=== PATIENT | male | born 1980 | race Caucasian/White ===

== ENCOUNTER 2020-09-12 08:59 | Emergency (ER) | payer SELFPAY ==
[2020-09-12 09:05] VITALS: BP 143/89; PULSE 88; RESP 19; TEMP 37; O2SAT 98; BMI 39.8
--- NOTE | 2020-09-12 09:23 | HMH.EDUTC ---
[facility] [place] Impression: Sinusitis Disposition: Home, Self-Care Condition on Discharge: Good Instructions: DI for Sinusitis Additional Instructions: You have been tested for COVID19. Please isolate yourself as if you are positive until your test results received. Prescriptions: Amoxicillin/Potassium Clav [Augmentin 875-125 Tablet] 1 tab PO Q12H 10 Days #20 tab Transmission Status: Pending to [facility] predniSONE [Prednisone 20mg Tab] 20 mg PO BID 5 Days #10 tab Transmission Status: Pending to [facility] Referrals: PCP,No [Primary Care Provider] - Time of Disposition: 09:28 Medical Decision Making - Louis Inquiry Pt receiving controlled substance: No Orders (Tests/Meds): ORDERS Category Date Time Status Covid-19 Nasal PCR ([facility]) Routine Lab 09/12/20 09:[address] [facility] [place] - General Stated complaint: headache,sinus,loss of smell Time Seen by Provider: 09/12/20 09:23 - History of Present Illness Provider Complaint: Headache, congestion, loss of smell since yesterday. No fever. Denies headache or sore throat. Denies N/V/D. Onset (ago): day(s) Location: head Relieving factors: none Exacerbating factors: none Associated symptoms: headaches Treatments prior to arrival: NSAID - Related Data Previous Rx's Medication Instructions Recorded phentermine 37.5 mg tablet 37.5 mg PO DAILY #30 tab 05/28/20 Amoxicillin/Potassium Clav 1 tab PO Q12H 10 Days #20 tab 09/12/20 [Augmentin 875-125 Tablet] predniSONE [Prednisone 20mg 20 mg PO BID 5 Days #10 tab 09/12/20 Tab] Allergies Allergy/AdvReac Type Severity Reaction Status Date / Time SULFA (SULFONAMIDE) Allergy Mild I-ITCHING Uncoded 05/28/20 09:20 ERYTHROMYCIN Allergy Unknown Uncoded 05/28/20 09:20 [facility] History - Hepatitis A Screen Attestation statement:: This patient has been screened for Hepatitis A risk factors. I have reviewed the patient's past medical history: Yes Other Surgeries: Yes: Hernia Repair Amputation: No Fractures: No Comment: L ACL rx - Social History Smoking Status: Never smoker Alcohol Intake: never Substance Use Type: denies use Occupational Status: employed Family Hx:: Diabetes, Thyroid Disorder ROS Obtained: Yes All systems reviewed & no additional complaints - Constitutional Constitutional: Reports headache(s), Reports malaise - ENT Ears, Nose, Mouth, and Throat: Reports nasal congestion, Reports other (loss of smell) Physical Exam - General General appearance: alert, in no apparent distress - Head Head exam: atraumatic, normocephalic, normal inspection - Eye Eye exam: Present: normal appearance, PERRL, EOMI - ENT ENT exam: Present: normal exam, normal oropharynx, mucous membranes moist, TM's normal bilaterally, normal external ear exam - Neck Neck exam: Present: normal inspection, full ROM, trachea midline. Absent: meningismus, lymphadenopathy - Chest Chest inspection: Present: normal inspection, symmetric chest wall rise. Absent: tenderness - Respiratory Respiratory exam: Present: normal lung sounds bilaterally. Absent: respiratory distress - Cardiovascular Cardiovascular exam: Present: regular rate, normal rhythm. Absent: JVD - Abdominal Exam Abdominal exam: Present: soft, normal bowel sounds. Absent: distention, tenderness, guarding - Extremities Exam Extremities exam: Present: normal inspection, full ROM, normal capillary refill. Absent: calf tenderness - Back Exam Back exam: Present: normal inspection. Absent: tenderness - Neurological Exam Neurological exam: Present: alert, oriented X3 - Psychiatric Psychiatric exam: Present: normal affect, normal mood - Skin Skin exam: Present: warm, dry, intact, normal color - Lymphatic Lymphatic Findings: no adenopathy
[2020-09-12 09:28] VITALS: BP 143/89; PULSE 88; RESP 19; TEMP 37; O2SAT 98
== END 2020-09-12 09:30 | disposition home or self-care (01) ==
PROVIDERS: Emergency Provider Physician Assistant
DX: Z20.822 Contact with and (suspected) exposure to COVID-19 (principal); J01.90 Acute sinusitis, unspecified; Z88.2 Allergy status to sulfonamides; Z88.1 Allergy status to other antibiotic agents
CPT/HCPCS: 99202; G0463; U0003

== ENCOUNTER 2023-08-17 11:57 | Outpatient (CLI) | payer OTHER, SELFPAY ==
[2023-08-17 12:34] LABS: Chloride 102 mmol/L (98-107); Potassium 4.3 mmoL/L (3.5-5.1); Sodium 136 mmol/L (136-145)
[2023-08-17 12:36] LABS: Blood Urea Nitrogen 13 mg/dl (9-20); Estimated Glomerular Filt Rate 106 ml/min (>60); GFR (African American) 128 ML/MIN (>60)
[2023-08-17 12:37] LABS: Alanine Aminotransferase 52 U/L (12-78); Albumin/Globulin Ratio 1.2 (1.1-1.8); Alkaline Phosphatase 84 U/L (38-126); Anion Gap 12.3 mEq/L (5-15); Aspartate Amino Transferase 39 U/L (17-59); Bilirubin,Total 0.7 mg/dl (0.2-1.3); Calcium 9.3 mg/dl (8.4-10.2); Carbon Dioxide 26 mmol/L (22.0-30.0); Chol/HDL Ratio 5.7 (1-3.5); Cholesterol 226 mg/dl (140-200); Globulin 3.4 g/dL (1.3-3.2); Glucose 177 mg/dl (74-100); HDL Cholesterol 40 mg/dl (40-60); Total Protein,Serum 7.4 g/dl (6.3-8.2); Triglycerides 104 mg/dl (30-150); VLDL Cholesterol 21 mg/dL (0-40)
[2023-08-17 12:48] LABS: Direct LDL Cholesterol 151.07 mg/dL (100-129)
[2023-08-17 12:54] LABS: 25-OH Vitamin D, Total 30.7 ng/mL (30-100)
[2023-08-17 13:07] LABS: Thyroid Stimulating Hormone 3.05 uIU/mL (0.465-4.68)
[2023-08-17 13:51] LABS: Prostate Specific Ag Screen 0.2 ng/ml (0.0-4.0)
[2023-08-22 08:43] LABS: Basophils % 0.4 % (0.1-2.0); Eosinophils # 0.2 K/mm3 (0.0-0.4); Eosinophils % 2.9 % (0.1-12.0); Hematocrit 45.8 % (42.0-52.0); Hemoglobin 14.9 g/dL (14.1-18.0); Lymphocytes # 2.6 K/mm3 (0.7-4.5); Lymphocytes % 34.1 % (10-50); Mean Corpuscular HGB Conc 32.6 g/dL (31.8-35.4); Mean Corpuscular Hemoglobin 28.2 pg (27.0-31.2); Mean Corpuscular Volume 86.5 fl (80-94); Mean Platelet Volume 7.2 fl (7.4-10.4); Monocytes # 0.5 K/mm3 (0.1-1.0); Monocytes % 7.1 % (1.7-9.3); Neutrophils # 4.2 K/mm3 (1.8-7.8); Neutrophils % 55.4 % (37.0-80.0); Platelet Count 230 K/mm3 (142-424); Red Cell Distribution Width 13.1 % (11.5-17.5); White Blood Count 7.6 K/mm3 (4.8-10.8)
[2023-08-22 14:23] LABS: Hemoglobin A1C 7.1 % (4.0-6.0)
== END 2023-08-17 23:59 ==
LOC: LAB.DROPOF 11:57
PROVIDERS: PCP Physician Assistant; Visit Provider Physician Assistant
DX: E66.01 Morbid (severe) obesity due to excess calories (principal); Z68.41 Body mass index [BMI] 40.0-44.9, adult; R73.09 Other abnormal glucose; Z79.899 Other long term (current) drug therapy; Z12.5 Encounter for screening for malignant neoplasm of prostate
CPT/HCPCS: 36415; 80053; 80061; 82306; 83036; 84443; 85025; G0103

== ENCOUNTER 2023-08-22 08:19 | Outpatient (CLI) | payer OTHER, SELFPAY | END 2023-08-22 23:59 | LOC: LAB 08:19 | PROVIDERS: PCP Physician Assistant; Visit Provider Physician Assistant | DX: E66.9 Obesity, unspecified (principal); Z68.41 Body mass index [BMI] 40.0-44.9, adult ==

== ENCOUNTER 2024-02-18 10:07 | Emergency (ER) | payer OTHER, SELFPAY ==
[2024-02-18 10:18] VITALS: BP 149/105; PULSE 78; RESP 18; TEMP 37.3; O2SAT 100; BMI 42.0
--- NOTE | 2024-02-18 10:22 | EXP.UTC ---
Discharge Plan Disposition Patient Disposition: Home, Self-Care Condition: Good Prescriptions Prescriptions: New amoxicillin 875 mg tablet 875 mg PO Q12H Qty: 20 0RF ciprofloxacin-dexamethasone 0.3-0.1 % Drops,Suspension 2 drp Ear-Right BID 7 Days Qty: 1 0RF ibuprofen [IBU] 800 mg tablet 800 mg PO Q8HP PRN (Reason: Moderate Pain) Qty: 30 0RF No Action Ozempic 0.25 mg or 0.5 mg (2 mg/3 mL) pen injector 0.25 mg SQ WEEKLY Qty: 3 2RF Rx Instructions: for 4 weeks, then increase to 0.5 mg weekly HgA1c 7.1 losartan 25 mg tablet 25 mg PO DAILY atorvastatin [Lipitor] 10 mg tablet 10 mg PO HS Qty: 30 2RF metformin 500 mg tablet extended release 24 hr See Rx Instructions .ROUTE .COMPLEX Qty: 30 2RF Dose Instruction: TAKE ONE TABLET BY MOUTH EVERY DAY --TAKE WITH FOOD-- Rx Instructions: TAKE ONE TABLET BY MOUTH EVERY DAY --TAKE WITH FOOD-- Ozempic 1 mg/dose (4 mg/3 mL) pen injector 1 mg SQ WEEKLY Qty: 3 2RF Referrals Follow up/Referrals: Mary Whitaker PA [Primary Care Provider] - See instructions Activity Restrictions/Add. Instructions Additional Instructions/Restrictions: Drink plenty of fluids. Take tylenol or ibuprofen for pain or fever. Take the medications as directed. Instill the ear drops as directed. Follow up with your regular doctor. GO TO THE ER FOR ANY WORSENING SYMPTOMS Clinical Impressions Clinical Impression: External otitis of right ear Instructions Patient Instructions: DI for Otitis Externa, How to Instill Ear Drops Discharge ED Provider: Elder Combs [facility] General Stated complaint: pain in R ear Mode of Arrival: Ambulatory Source of Information: Patient Limitations: No Limitations Time Seen by Provider: 02/18/24 10:21 Description of Symptoms (Recalled from Triage Doc. by RN): Pt c/o R ear pain x3 days. Pt reports also pain on R side of face. Pt reports feels like swimmers ear . Pt has recently been swimming. HEENT Symptoms (Recalled from RN notes): Yes (c/o pain R ear and R side of face.) Resp Symptoms (Recalled from RN notes): No Skin Symptoms (Recalled from RN notes): No MS Symptoms (Recalled from RN notes): No Functional Status (Recalled from RN notes): n/a History of Present Illness Provider Complaint: He states that for the past 3 days he has had right ear pain with tannish discharge from that ear canal. He states that he is hearing normally out of the ear. [place] been to the ocean and was swimming frequently before his symptoms started. Related Data Home Medications Medication Instructions Recorded Confirmed losartan 25 mg tablet 25 mg PO DAILY 11/15/22 02/18/24 Previous Rx's Medication Instructions Recorded atorvastatin 10 mg tablet (Lipitor) 10 mg PO HS #30 tabs 08/24/23 semaglutide 0.25 mg or 0.5 mg (2 0.25 mg (0.368 mL) SQ WEEKLY #3 mL 11/07/23 mg/3 mL) subcutaneous pen injector (Ozempic) metformin 500 mg tablet,extended See Rx Instructions .Route 12/01/23 release 24 hr .COMPLEX #30 tabs semaglutide 1 mg/dose (4 mg/3 mL) 1 mg (0.75 mL) SQ WEEKLY #3 mL 01/22/24 subcutaneous pen injector (Ozempic) amoxicillin 875 mg tablet 875 mg PO Q12H #20 tabs 02/18/24 ciprofloxacin 0.3 %-dexamethasone 2 drp Ear-Right BID 7 days #1 ea 02/18/24 0.1 % ear drops,suspension ibuprofen 800 mg tablet (IBU) 800 mg PO Q8HP PRN Moderate Pain 02/18/24 #30 tabs Allergies Allergy/AdvReac Type Severity Reaction Status Date / Time lisinopril Allergy Severe Cough Verified 11/07/23 08:31 erythromycin base Allergy Verified 11/07/23 08:31 Sulfa (Sulfonamide Allergy Verified 11/07/23 08:31 Antibiotics) Worker's Comp Is this a Worker's Comp case?: No [facility] Disclaimer: The information contained in this section may have been updated after the patient was seen, as this information can be updated by other users. Medical History (Updated 02/18/24 @ 10:33 by Elder Combs APRN) Type 2 diabetes mellitus Hypertension BMI 40.0-44.9, adult Obesity Social History Smoking Status: Never smoker alcohol intake: never substance use type: denies use current occupational status: other Travel in the last 8 weeks: None ROS Obtained: Yes All systems reviewed & no additional complaints except as documented Constitutional Constitutional: Denies chills and Denies fever(s) Eyes Eyes: Denies eye discharge ENT Ears, Nose, Mouth, and Throat: Reports as per HPI, Denies dizziness, Reports ear discharge, Reports otalgia and Denies sore throat Cardiovascular Cardiovascular: Denies chest pain Respiratory Respiratory: Denies shortness of breath, Denies chest congestion, Denies cough, Denies stridor and Denies wheezing Gastrointestinal Gastrointestingal: Denies nausea or vomiting Musculoskeletal Musculoskeletal: Reports system reviewed and no additional complaints, except as documented and Denies arthralgias Integumentary/Breasts Skin/Breast: Denies rash Neurologic Neurologic: Denies dizziness and Denies paresthesias Allergic/Immunologic Allergic/Immunologic: Denies wheezing Physical Exam General General appearance: alert and in no apparent distress Head Head exam: atraumatic, normocephalic and normal inspection Eye Eye exam: Present normal appearance, PERRL and EOMI ENT ENT exam: Present normal oropharynx, mucous membranes moist and normal external ear exam Expanded ENT Exam TM/Canal exam: Right TM: erythema, canal discharge and canal tenderness Neck Neck exam: Present normal inspection, full ROM and trachea midline; Absent meningismus or lymphadenopathy Chest Chest inspection: Present normal inspection and symmetric chest wall rise; Absent tenderness Respiratory Respiratory exam: Present normal lung sounds bilaterally; Absent respiratory distress Cardiovascular Cardiovascular exam: Present regular rate and normal rhythm; Absent JVD Abdominal Exam Abdominal exam: Present soft and normal bowel sounds; Absent distention, tenderness or guarding Extremities Exam Extremities exam: Present normal inspection, full ROM and normal capillary refill; Absent calf tenderness Back Exam Back exam: Present normal inspection; Absent tenderness Neurological Exam Neurological exam: Present alert and oriented X3 Psychiatric Psychiatric exam: Present normal affect and normal mood Skin Skin exam: Present warm, dry, intact and normal color Lymphatic Lymphatic Findings: no adenopathy Medical Decision Making Medical Records Medical records reviewed: No I reviewed the patient's medical records. Louis Inquiry Pt receiving controlled substance: No Vital Signs: 02/18/24 10:18 Temperature 99.1 F Temperature Source Oral Pulse Rate [Right Radial] 78 Respiratory Rate 18 Blood Pressure [Right Arm] 149/105 H Blood Pressure Mean [Right Arm] 119 Blood Pressure Source [Right Arm] Automatic Cuff Blood Pressure Position [Right Arm] Sitting 02 Sat by Pulse Oximetry 100 Oxygen Delivery Method Room Air
[2024-02-18 10:38] VITALS: BP 152/111; PULSE 82; RESP 18; TEMP 37.3; O2SAT 99
== END 2024-02-18 10:39 | disposition home or self-care (01) ==
PROVIDERS: Emergency Provider Nurse Practitioner Family; PCP Physician Assistant
DX: H60.91 Unspecified otitis externa, right ear (principal); H92.01 Otalgia, right ear
CPT/HCPCS: 99204; 99212; G0463

== ENCOUNTER 2024-03-22 09:04 | Outpatient (CLI) | payer OTHER, SELFPAY ==
--- NOTE | 2024-03-22 09:08 | XR_ITS ---
FINAL REPORT CLINICAL HISTORY: knee pain FINDINGS: Left knee Three views were obtained. There is no acute fracture or dislocation. There are postoperative changes from ACL repair. There are mild to moderate degenerative changes. IMPRESSION: Degenerative and postoperative changes. Reviewed, Interpreted and Dictated by Darrick Parikh III, MD Transcribed by Virgen Trotter Authenticated and [facility]
== END 2024-03-22 23:59 | disposition home or self-care (01) ==
LOC: RAD 09:06
PROVIDERS: PCP Physician Assistant; Visit Provider Physician Assistant
DX: M25.562 Pain in left knee (principal)
CPT/HCPCS: 73562

== ENCOUNTER 2024-07-11 13:30 | Outpatient (CLI) | payer OTHER, SELFPAY ==
[2024-07-11 17:44] LABS: Microalbumin/Creatinine Ratio 4.7
[2024-07-11 17:55] LABS: Creatinine,Urine Random 278 mg/dL (Not Estab.)
== END 2024-07-11 23:59 | disposition home or self-care (01) ==
LOC: LAB.DROPOF 07-12 08:21
PROVIDERS: PCP Internal Medicine; Visit Provider Internal Medicine
DX: E11.9 Type 2 diabetes mellitus without complications (principal)
CPT/HCPCS: 82043; 82570

== ENCOUNTER 2025-03-11 08:43 | Outpatient (CLI) | payer OTHER, SELFPAY ==
--- OUTSIDE RECORDS SUMMARY | 2025-03-11 08:06 | XMS_ITS | Continuity of Care Document ---
Author Name [facility] Organization [facility] Care Team Providers Care Home Care Aide Name Role Phone [facility] Unavailable Unavailable Problems Combined list of problems from Department of Defense and Veterans Affairs facilities. It does not include entries that were removed or entered in error. Problem Status Onset Date Problem Type Date of Resolution Comments Source visit for: services physical demobilization Active Condition [facility] ankle joint pain Inactive Condition [facility] UPPER RESPIRATORY INFECTION Active Condition [facility] GASTROENTERITIS Inactive Condition [facility] Other Physical Therapy Active Condition [facility] ANKLE SPRAIN Inactive Condition [facility] visit for: examination Inactive Condition [facility] CONCUSSION WITH LOC 30 MINUTES OR LESS Inactive Condition [facility] eye pain Inactive Condition [facility] CONJUNCTIVITIS ACUTE RIGHT EYE Inactive Condition [facility] DISORDERS OF MUSCLE, LIGAMENT, AND FASCIA Active Condition [facility] ANKLE SPRAIN LEFT Inactive Condition [facility] WELDERS' KERATITIS Active Condition r esolved. 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 Active Condition [facility] Ankle Injury Active Condition Sep 08, 2009 Entered By: MARINA RICHMOND Comment: Recurrent Right Ankle SprainsOct 02, 2009 Entered By: MARINA RICHMOND Comment: Pain in both ankles [facility] Anxiety Active Condition [facility] Anxiety Disorder Active Condition Apr 22, 2010 Entered By: MARINA RICHMOND Comment: Citalopram resulted in palpitations [facility] Bladder Neck Obstruction Active Condition December 11, 2012 Entered By: MARINA RICHMOND Comment: Post Void residual 150 ml December 2012; Flomax prescribed [facility] Bunion Active Condition [facility] Condyloma latum (SNOMED [place] 87722001) Active Condition [facility] Depressive Disorder NOS * (ICD-9-CM 311.) Active Condition [facility] Exposure to potentially hazardous substance Active Condition [facility] Family History Active Condition Sep 082009 Entered By: MARINA RICHMOND Comment: Diabetes - paternal grandmotherFeb 2009 Entered By: MARINA RICHMOND Comment: Breast Cancer - maternal aunt [facility] Health Maintenance Active Condition S ep 2009 Entered By: MARINA RICHMOND Comment: TSH 3.69 December 2012Sep 2009 Entered By: MARINA RICHMOND Comment: Hep C neg 2011 Entered By: MARINA RICHMOND Comment: HIV neg 03/18May 2012 Entered By: MARINA RICHMOND Comment: A1c 5.4% December 2012 [facility] Hearing loss Active Condition [facility] History of male erectile disorder (SNOMED CT 861225595) Active Condition Oct 08, 2009 Entered By: MARINA RICHMOND Comment: Total and free Testosterone normal 10/14 [facility] HTN - Hypertension (SNOMED CT 32656229) Active Condition [facility] Hyperlipidemia (SNOMED CT 28692080) Active Condition Apr 28, 2010 Entered By: MARINA RICHMOND Comment: Chol 228/ Trig 316/ HDL 43/ LDL 122 mg/dl 04/16 [facility] Injury of shoulder region Active Condition [facility] Irritable Bowel Syndrome Active Condition December 13, 2012 Entered By: MARINA RICHMOND Comment: Celiac serology negative; stool studies benign December Entered By: MARINA RICHMOND Comment: Colonosocpy Mar 2013 - erosion sigmoid and rectum.Mar 26, 2013 Entered By: MARINA RICHMOND Comment: Colon biopsies benign Mar 2013 [facility] Knee Injury Active Condition Oct 02, 2009 Entered By: MARINA RICHMOND Comment: Lateral Left Knee PainOct 19, 2011 Entered By: MARINA RICHMOND Comment: MRI 10/16 -Tear post horn medial meniscus? tear lat meniscus;Oct 19, 2011 Entered By: MARINA RICHMOND Comment: absent anterior cruciate ligament consistent w/ chronic tearS2011 Entered By: MARINA RICHMOND Comment: Left ACL recontruction Mar 2012Se2012 Entered By: MARINA RICHMOND Comment: L Knee MRI Apr 2013 - significant pathologyMay 2013 Entered By: MARINA RICHMOND Comment: L Knee MRI December 2013 - ACL graft rupture [facility] Pain in left foot [facility] Pain in left knee Active [facility] Pain of left ankle joint Active Condition [facility] Personal History of return from Deployment Active Condition Mar 03, 2009 Entered By: MARINA RICHMOND Comment: Purple Heart Recepient (IED; concussion)Oct 02, 2009 Entered By: MARINA RICHMOND Comment: [employer], remains in [employer] Entered By: MARINA RICHMOND Comment: [place] 09/14 to 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; 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 Entered By: MARINA RICHMOND Comment: 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; 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 [facility] Posttraumatic stress disorder Active Condition [facility] Shoulder joint pain Active Condition [facility] Simple obesity Active Condition [place] [facility] Social History Active Condition Sep 082009 Entered By: MARINA RICHMOND Comment: Single, no childrenFe2009 Entered By: MARINA RICHMOND Comment: Tobacco Use deniedOct 02, 2009 Entered By: MARINA RICHMOND Comment: Alcohol - 4-5 drinks on week per averageFe2009 Entered By: MARINA RICHMOND Comment: Some collegeFe2009 Entered By: MARINA RICHMOND Comment: Unemployed [facility] Sprain of anterior cruciate ligament of knee Active Condition [facility] Surgical History Active Condition Oct 02, 2009 Entered By: MARINA RICHMOND Comment: Left Inguinal Hernia procedureS2011 Entered By: MARINA RICHMOND Comment: L ACL recontruction Mar 2012 [facility] Type 2 diabetes mellitus without complication Active Condition [facility] Diagnosis: ICD-10-CM I10 Essential (primary) hypertension Active Diagnosis [facility] Medications Combined list of outpatient medications from Department of Defense and Veterans Affairs facilities.Medications provided include 1) outpatient medications from the last 15 months, and 2) patient-reported medications. Medication Details Route Status Patient Instructions Prescription Expires Prescription Number Last Dispense Date Ordering Provider Order Date Order Qty Source ATORVASTATI N [place] 20MG TAB TAKE ONE-HALF TABLET BY MOUTH DAILY FOR CHOLESTE ROL -DO NOT DRINK GRAPEFRU IT JUICE WHILE ON THIS DRUG ORAL ACTIVE 04/19/2025 [id number] AUGIE TIPTON UKKaren S 2023 45 [place] [facility] LOS[place]AN 50MG TAB TAKE ONE TABLET BY MOUTH DAILY FOR BLOOD PRESSURE ORAL ACTIVE 04/19/2025 [id number] 4 AUGIE TIPTON S 2023 90 [place] [facility] LOS[place]AN 50MG TAB TAKE ONE TABLET BY MOUTH DAILY FOR BLOOD PRESSURE ORAL DISCONT INUED 05/05/2024 [id number] 4 AUGIE TIPTON S 2023 90 [place] [facility] MELOXICAM 7.5MG TAB TAKE ONE TABLET BY MOUTH DAILY NEEDED FOR PAIN OR INFLAMMA TION - TAKE WITH FOOD OR MILK ORAL ACTIVE 04/19/2025 [id number] 4 AUGIE TIPTON S 2023 90 [place] [facility] METFORMIN HCL 500MG 24HR TAB,SA TAKE ONE TABLET BY MOUTH DAILY ORAL ACTIVE AUGIE TIPTON S 2023 [place] [facility] PEG-3350/EL ECTROLYTES PWDR TAKE CONTENTS OF BOTTLE BY MOUTH DIRECTED FOR BOWEL PREP -FILL JUG TO LINE WITH WATER. DRINK HALF AT 6PM THE NIGHT BEFORE PROCEDUR E. DRINK LAST HALF 4-6 HOURS PRIOR TO PROCEDUR E. NOTHING BY MOUTH AFTER PREP IS COMPLETE D. CALL PREP HOTLINE AT WITH QUESTION S. -FILL JUG TO LINE WITH WATER. DRINK HALF AT 6PM THE NIGHT BEFORE PROCEDUR E. DRINK LAST HALF 4-6 HOURS PRIOR TO PROCEDUR E. NOTHING BY MOUTH AFTER PREP IS COMPLETE D. CALL PREP HOTLINE AT WITH QUESTION S. ORAL 10/22/2024 [id number] 5 DORETHA,AND LESTER M 2024 1 [place] SILDENAFIL CITRATE 100MG TAB TAKE ONE TABLET BY MOUTH DIRECTED -DO NOT TAKE WITH ANY MEDICATI ON CONTAINI NG NITRATES (LIMIT: 6 DOSES/30 DAYS OR 18 DOSES/90 DAYS, NON-REPL ACEABLE MEDICATI ON) ORAL ACTIVE 04/19/2025 [id number] 5 AUGIE TIPTON S 2023 18 [place] [facility] SILDENAFIL CITRATE 100MG TAB TAKE ONE TABLET BY MOUTH DIRECTED -DO NOT TAKE WITH ANY MEDICATI ON CONTAINI NG NITRATES (LIMIT: 6 DOSES/30 DAYS OR 18 DOSES/90 DAYS, NON-REPL ACEABLE MEDICATI ON) ORAL DISCONT INUED 02/26/2024 [id number] 4 AUGIE TIPTON S 2023 18 [place] Allergies, Adverse Reactions, Alerts Combined list of allergies from Department of Defense and Veterans Affairs facilities. It does not include entries that were removed or entered in error. Substance Category Reaction Severity Reaction type Status Date Reported Comments Source CELEXA Propensity to adverse reactions to drug (finding) Palpitation s MODERATE active 3 [place] [facility] Propensity to adverse reactions to drug (finding) Nausea and vomiting MILD active 3 [place] [facility] ERYTHROMYCIN Propensity to adverse reactions to drug (finding) active 0 [place] [facility] ER[facility]ROM[facility] (ERYTHROMYCI N BASE) Drug allergy (disorder) Unknown active 6 [employer] [place] LISINOPRIL Propensity to adverse reactions to drug (finding) active 3 [place] [facility] SULFA DRUGS Propensity to adverse reactions to drug (finding) active 0 [place] [facility] SULFA-DRUGS Drug allergy (disorder) Unknown active 6 [employer] [place] [place] TRAZODONE Propensity to adverse reactions to drug (finding) Nausea and vomiting MODERATE active 2 [place] [facility] Immunizations Combined list of available immunizations from the Department of Defense and Veterans Affairs facilities. Immunization Series Date Given Administered By Site Reaction Lot Number CVX Code Drug Professor Of Rhetoric Status Comments Source INFLUENZA, SEASONAL, INJECTABLE 2018 141 complet ed [place] [facility] INFLUENZA A & B (HISTORICAL) 2015 88 complet ed [place] [facility] DTP 2013 01 complet ed [place] [facility] TDAP (HISTORICAL) 2013 115 complet ed [place] [facility] INFLUENZA A & B (HISTORICAL) 2013 88 complet ed [place] [facility] INFLUENZA A & B (HISTORICAL) 2012 88 complet ed [place] [facility] INFLUENZA A & B (HISTORICAL) 2011 88 complet ed [facility] INFLUENZA A & B (HISTORICAL) 2010 88 complet ed [place] [facility] influenza virus vaccine, live, attenuated, for intranasal use 1 2010 [id number] 111 Unknown (UNK) comple t ed influenza virus vaccine, live, attenuate d, for intranasa l use DoD influenza virus vaccine, unspecified formulation 1 2009 UNK 88 Unknown (UNK) comple t ed influenza virus vaccine, unspecifi ed formulati on DoD Novel influenza-H1N 1-09, all formulations 1 2009 [id number] 1 128 Unknown (UNK) complet ed Novel influenza -[id number], all formulati ons DoD NOVEL INFLUENZA-H1N 1-09, ALL FORMULATIONS 2009 128 complet ed [employer] [place] [facility] INFLUENZA A & B (HISTORICAL) 2008 88 complet ed [facility] influenza virus vaccine, live, attenuated, for intranasal use 1 2008 [id number] 111 Unknown (UNK) comple t ed influenza virus vaccine, live, attenuate d, for intranasa l use DoD influenza virus vaccine, split virus (incl. purified surface antigen)-reti red CODE 0 2007 15 Unknown (UNK) comple t ed influenza virus vaccine, split virus (incl. purified surface antigen)- retired CODE DoD anthrax vaccine 4 2007 UNK 24 Miles (MIL) complet ed anthrax vaccine DoD influenza virus vaccine, split virus (incl. purified surface antigen)-reti red CODE 1 2007 UNK 15 Unknown (UNK) comple t ed influenza virus vaccine, split virus (incl. purified surface antigen)- retired CODE DoD anthrax vaccine 3 2007 UNK 24 Miles (MIL) complet ed anthrax vaccine DoD anthrax vaccine 2 2007 UNK 24 [facility] ([facility]) complet ed anthrax vaccine DoD anthrax vaccine 1 2007 UNK 24 [employer] (MIP) complet ed anthrax vaccine DoD vaccinia (smallpox) vaccine 1 2007 UNK 75 Dominick (WAL) complet ed vaccinia (smallpox ) vaccine DoD typhoid Vi capsular polysaccharid e vaccine 1 2007 [id number] [employer] (AVB) complet ed typhoid Vi capsular polysacch aride vaccine DoD TD(ADULT) UNSPECIFIED FORMULATION 2007 139 complet ed [place] [facility] influenza virus vaccine, split virus (incl. purified surface antigen)-reti red CODE 1 2006 UNK 15 Unknown (UNK) comple t ed influenza virus vaccine, split virus (incl. purified surface antigen)- retired CODE DoD influenza virus vaccine, split virus (incl. purified surface antigen)-reti red CODE 1 2006 UNK 15 Unknown (UNK) comple t ed influenza virus vaccine, split virus (incl. purified surface antigen)- retired CODE DoD hepatitis B vaccine, adult dosage 3 2005 UNK 43 Unknown (UNK) comple t ed hepatitis B vaccine, adult dosage DoD hepatitis B vaccine, adult dosage 2 2004 UNK 43 Unknown (UNK) comple t ed hepatitis B vaccine, adult dosage DoD typhoid vaccine, parenteral, other than acetone-kille d, dried 1 2003 UNK 41 Unknown (UNK) comple t ed typhoid vaccine, parentera l, other than acetone-k illed, dried DoD hepatitis B vaccine, adult dosage 1 2003 UNK 43 Unknown (UNK) comple t ed hepatitis B vaccine, adult dosage DoD hepatitis A vaccine, adult dosage 1 2003 UNK 52 Unknown (UNK) comple t ed hepatitis A vaccine, adult dosage DoD influenza virus vaccine, split virus (incl. purified surface antigen)-reti red CODE 1 2002 UNK 15 Unknown (UNK) comple t ed influenza virus vaccine, split virus (incl. purified surface antigen)- retired CODE DoD influenza virus vaccine, split virus (incl. purified surface antigen)-reti red CODE 0 2001 UNK 15 Sanofi Pasteur (PMC) complet ed influenza virus vaccine, split virus (incl. purified surface antigen)- retired CODE DoD tetanus and diphtheria toxoids, adsorbed, preservative free, for adult use (2 Lf of tetanus toxoid and 2 Lf of diphtheria toxoid) 0 2001 UNK 09 Unknown (UNK) comple t ed tetanus and diphtheri a toxoids, adsorbed, preservat enid free, for adult use (2 Lf of tetanus toxoid and 2 Lf of diphtheri a toxoid) DoD measles, mumps and rubella virus vaccine 0 2000 UNK 03 Unknown (UNK) comple t ed measles, mumps and rubella virus vaccine DoD poliovirus vaccine, inactivated 0 2000 UNK 10 Unknown (UNK) comple t ed polioviru s vaccine, inactivat ed DoD meningococcal polysaccharid e vaccine (MPSV4) 0 2000 UNK 32 Unknown (UNK) comple t ed meningoco ccal polysacch aride vaccine (MPSV4) DoD hepatitis A vaccine, adult dosage 1 2000 UNK 52 Unknown (UNK) comple t ed hepatitis A vaccine, adult dosage DoD hepatitis A vaccine, unspecified formulation 0 2000 UNK 85 Unknown (UNK) comple t ed hepatitis A vaccine, unspecifi ed formulati on DoD influenza virus vaccine, unspecified formulation 0 2000 UNK 88 Unknown (UNK) comple t ed influenza virus vaccine, unspecifi ed formulati on DoD TD (ADULT), 2 LF TETANUS TOXOID, PRESERVATIVE FREE, ADSORBED 1 1996 09 complet ed HISTORICA L INFORMATI ON - FROM OTHER REGISTRY, [facility] Results Combined list of recent chemistry, hematology and other laboratory results from Department of Defense and Veterans Affairs, ranging from 15 months to all on record, depending upon the facility. Order Name Results Value Reference Range Date Interpretation Specimen Comments Source CBC/PLT LEUKOCYTES [#/VOLUME] IN BLOOD BY AUTOMATED COUNT 6.6 10*3/u L 5.0 - 10.0 09/19 Specimen Type: BLOOD No comment entered. Ordering Provider: KACEY TIPTON Report Released Date/Time: Sep 17, 2024 12:00 PM Reporting Lab: [facility] [address] [facility] [id number] Performing Lab: [address] [phone] [place] [address] CBC/PLT ERYTHROCYTE S [#/VOLUME] IN BLOOD BY AUTOMATED COUNT 5.15 10*6/u L 4.6 - 6.2 09/19 Specimen Type: BLOOD No comment entered. Ordering Provider: KACEY TIPTON Report Released Date/Time: Sep 17, 2024 12:00 PM Reporting Lab: [place] [address] Performing Lab: [place] [phone] [place] [address] CBC/PLT HEMOGLOBIN [MASS/VOLUM E] IN BLOOD 15.1 g/dL 14.0 - 18.0 09/19 Specimen Type: BLOOD No comment entered. Ordering Provider: KACEY TIPTON Report Released Date/Time: Sep 17, 2024 12:00 PM Reporting Lab: [place] [phone] Performing Lab: [place] [phone] [place] [address] CBC/PLT HEMATOCRIT [VOLUME FRACTION] OF BLOOD BY AUTOMATED COUNT 44.3 42.0 - 52.0 09/19 Specimen Type: BLOOD No comment entered. Ordering Provider: KACEY TIPTON Report Released Date/Time: Sep 17, 2024 12:00 PM Reporting Lab: [place] [phone] Performing Lab: [place] [phone] [place] [address] CBC/PLT MCV [ENTITIC VOLUME] BY AUTOMATED COUNT 86.0 fL 80.0 - 94.0 09/19 Specimen Type: BLOOD No comment entered. Ordering Provider: KACEY TIPTON Report Released Date/Time: Sep 17, 2024 12:00 PM Reporting Lab: [address] [phone] Performing Lab: [place] [phone] [place] [address] CBC/PLT MCH [ENTITIC MASS] BY AUTOMATED COUNT 29.3 pg 27.0 - 31.0 09/19 Specimen Type: BLOOD No comment entered. Ordering Provider: KACEY TIPTON Report Released Date/Time: Sep 17, 2024 12:00 PM Reporting Lab: [place] [phone] Performing Lab: [place] [phone] CBC/PLT MCHC [MASS/VOLUM E] BY AUTOMATED COUNT 34.1 g/dL 32.0 - 36.0 09/19 Specimen Type: BLOOD No comment entered. Ordering Provider: KACEY TIPTON Report Released Date/Time: Sep 17, 2024 12:00 PM Reporting Lab: [place] [address] Performing Lab: [address] CBC/PLT PLATELETS [#/VOLUME] IN BLOOD 238 10*3/u L 150 - 450 09/19 Specimen Type: BLOOD No comment entered. Ordering Provider: KACEY TIPTON Report Released Date/Time: Sep 17, 2024 12:00 PM Reporting Lab: [place] [phone] Performing Lab: [place] [phone] CBC/PLT PLATELET MEAN VOLUME [ENTITIC VOLUME] IN BLOOD 9.5 fL 9.0 - 13.1 09/19 Specimen Type: BLOOD No comment entered. Ordering Provider: KACEY TIPTON Report Released Date/Time: Sep 17, 2024 12:00 PM Reporting Lab: [place] [phone] Performing Lab: [place] [phone] [place] [address] CBC/PLT ERYTHROCYTE DISTRIBUTIO N WIDTH [ENTITIC VOLUME] BY AUTOMATED COUNT 12.6 11.0 - 16.0 09/19 Specimen Type: BLOOD No comment entered. Ordering Provider: KACEY TIPTON Report Released Date/Time: Sep 17, 2024 12:00 PM Reporting Lab: [place] [address] Performing Lab: [address] CBC/PLT NUCLEATED ERYTHROCYTE S/100 ERYTHROCYTE S IN BLOOD 0.0 0.0 - 0.0 09/19 Specimen Type: BLOOD No comment entered. Ordering Provider: KACEY TIPTON Report Released Date/Time: Sep 17, 2024 12:00 PM Reporting Lab: [place] [address] Performing Lab: [address] CBC/PLT LEUKOCYTES [#/VOLUME] IN BLOOD BY AUTOMATED COUNT 6.9 10*3/u L 5.0 - 10.0 04/18 Specimen Type: BLOOD No comment entered. Ordering Provider: KACEY TIPTON Report Released Date/Time: Apr 18, 2024 10:12 AM Reporting Lab: [place] [phone] Performing Lab: [address] CBC/PLT ERYTHROCYTE S [#/VOLUME] IN BLOOD BY AUTOMATED COUNT 5.13 10*6/u L 4.6 - 6.2 04/18 Specimen Type: BLOOD No comment entered. Ordering Provider: KACEY TIPTON Report Released Date/Time: Apr 18, 2024 10:12 AM Reporting Lab: [place] [phone] Performing Lab: [place] [phone] CBC/PLT HEMOGLOBIN [MASS/VOLUM E] IN BLOOD 14.6 g/dL 14.0 - 18.0 04/18 Specimen Type: BLOOD No comment entered. Ordering Provider: KACEY TIPTON Report Released Date/Time: Apr 18, 2024 10:12 AM Reporting Lab: [address] [phone] Performing Lab: [phone] [place] [address] CBC/PLT HEMATOCRIT [VOLUME FRACTION] OF BLOOD BY AUTOMATED COUNT 45.1 42.0 - 52.0 04/18 Specimen Type: BLOOD No comment entered. Ordering Provider: KACEY TIPTON Report Released Date/Time: Apr 18, 2024 10:12 AM Reporting Lab: [address] [phone] Performing Lab: [place] [phone] [place] [address] CBC/PLT MCV [ENTITIC VOLUME] BY AUTOMATED COUNT 87.9 fL 80.0 - 94.0 04/18 Specimen Type: BLOOD No comment entered. Ordering Provider: KACEY TIPTON Report Released Date/Time: Apr 18, 2024 10:12 AM Reporting Lab: [place] [phone] Performing Lab: [place] [phone] [place] [address] CBC/PLT MCH [ENTITIC MASS] BY AUTOMATED COUNT 28.5 pg 27.0 - 31.0 04/18 Specimen Type: BLOOD No comment entered. Ordering Provider: KACEY TIPTON Report Released Date/Time: Apr 18, 2024 10:12 AM Reporting Lab: [address] [phone] Performing Lab: [phone] [place] [address] CBC/PLT MCHC [MASS/VOLUM E] BY AUTOMATED COUNT 32.4 g/dL 32.0 - 36.0 04/18 Specimen Type: BLOOD No comment entered. Ordering Provider: KACEY TIPTON Report Released Date/Time: Apr 18, 2024 10:12 AM Reporting Lab: [address] [phone] Performing Lab: [place] [phone] [place], [place] [address] CBC/PLT PLATELETS [#/VOLUME] IN BLOOD 263 10*3/u L 150 - 450 04/18 Specimen Type: BLOOD No comment entered. Ordering Provider: KACEY TIPTON Report Released Date/Time: Apr 18, 2024 10:12 AM Reporting Lab: [place] [phone] Performing Lab: [place] [phone] [place] [address] CBC/PLT PLATELET MEAN VOLUME [ENTITIC VOLUME] IN BLOOD 9.6 fL 9.0 - 13.1 04/18 Specimen Type: BLOOD No comment entered. Ordering Provider: KACEY TIPTON Report Released Date/Time: Apr 18, 2024 10:12 AM Reporting Lab: [place] [phone] Performing Lab: [place] [phone] [place] [address] CBC/PLT ERYTHROCYTE DISTRIBUTIO N WIDTH [ENTITIC VOLUME] BY AUTOMATED COUNT 12.9 11.0 - 16.0 04/18 Specimen Type: BLOOD No comment entered. Ordering Provider: KACEY TIPTON Report Released Date/Time: Apr 18, 2024 10:12 AM Reporting Lab: [place] [phone] Performing Lab: [place] [phone] [place] [address] CBC/PLT NUCLEATED ERYTHROCYTE S/100 ERYTHROCYTE S IN BLOOD 0.0 0.0 - 0.0 04/18 Specimen Type: BLOOD No comment entered. Ordering Provider: KACEY TIPTON Report Released Date/Time: Apr 18, 2024 10:12 AM Reporting Lab: [place] [phone] Performing Lab: [place] [phone] [place] [address] GLYCOHEMO GLOBIN HEMOGLOBIN A1C/HEMOGLO BIN.TOTAL IN BLOOD BY HPLC 5.0 4.4 - 6.4 04/18 Specimen Type: BLOOD Comment: [place] guidelines for A1c interpretat ion: Glycemic control targets are based on Shared Decision Making between clinicians and patients. Criteria used to establish an A1c target recommendat ion can be found at https://www .dc.gov/aliyah lityandpati entsafety/ and include the use of result accuracy and precision(C V) of the A1c tests clinicians utilize at their own sites of practice. Values obtained from A1C measurement s can vary. For typical A1C assays, a reported value of 7.0 could actually be between 6.72 and 7.28 if measured by a reference method. A reported value of 9.0 could actually be between 8.73 and 9.27. Ref: https://ngs p.org/CAPda ta.asp. The in-house [employer] [place] D-100 analyzer has a historical CV <= 2%. Contact the laboratory for further performance characteris tics of this assay. Ordering Provider: KACEY TIPTON Report Released Date/Time: Apr 18, 2024 10:12 AM Reporting Lab: [facility] [address] [phone] Performing Lab: [facility] [address] [address] [facility] LIPID PROFILE CHOLESTEROL [MASS/VOLUM E] IN SERUM OR PLASMA 158 mg/dL 0 - 199 04/18 Specimen Type: PLASMA Comment: Estimated Glomerular Filtration Rate (eGFR) calculated using the 2020 Chronic Kidney Disease-Epi demiology (CKD-EPI) Collaborati on creatinine equation; units of measure are mL/min/1.73 m2. Results are only valid for adults (>=18 years) whose serum creatinine is in a steady state. eGFR calculation s are not valid for patients with acute kidney injury and for patients on dialysis. Creatinine- based estimates of kidney function may also be inaccurate in patients with reduced creatinine generation due to decreased muscle mass (e.g., malnutritio n, severe hypoalbumin emia, sarcopenia, chronic neuromuscul ar disease, amputations , severe heart failure or liver disease) and in patients with increased creatinine generation due to increased muscle mass (e.g., muscle builders, anabolic steroids) or increased dietary intake. As drug clearance is proportiona l to total GFR and not GFR indexed to body surface area (BSA), in individuals with a BSA substantial ly different than 1.73 m2, drug dosing should be based on the reported eGFR value de-indexed from BSA by multiplying by the individual' s BSA and dividing by 1.73. CKD is diagnosed based on abnormaliti es of kidney structure or function, present for >3 months, with implication s for health and disease. CKD is classified and staged based on cause, eGFR and albuminuria (quantified as urine albumin to creatinine ratio). An eGFR >60 mL/min/1.73 m2 in the absence of increased urine albumin excretion or structural abnormaliti es does not represent CKD. eGFR CKD Interpretat ion (mL/min/1.7 3 m2) stage >=90 G1 Normal 60-89 G2 Mild decrease 45-59 G3A Mild to moderate decrease 30-44 G3B Moderate to severe decrease 15-29 G4 Severe decrease <15 G5 Kidney failure Ordering Provider: KACEY TIPTON Report Released Date/Time: Apr 18, 2024 10:12 AM Reporting Lab: [facility] [address] [address] Performing Lab: [facility] HO[facility] [address] [address] [facility] LIPID PROFILE TRIGLYCERID E [MASS/VOLUM E] IN SERUM OR PLASMA 70 mg/dL 0 - 149 04/18 Specimen Type: PLASMA Comment: Estimated Glomerular Filtration Rate (eGFR) calculated using the 2020 Chronic Kidney Disease-Epi demiology (CKD-EPI) Collaborati on creatinine equation; units of measure are mL/min/1.73 m2. Results are only valid for adults (>=18 years) whose serum creatinine is in a steady state. eGFR calculation s are not valid for patients with acute kidney injury and for patients on dialysis. Creatinine- based estimates of kidney function may also be inaccurate in patients with reduced creatinine generation due to decreased muscle mass (e.g., malnutritio n, severe hypoalbumin emia, sarcopenia, chronic neuromuscul ar disease, amputations , severe heart failure or liver disease) and in patients with increased creatinine generation due to increased muscle mass (e.g., muscle builders, anabolic steroids) or increased dietary intake. As drug clearance is proportiona l to total GFR and not GFR indexed to body surface area (BSA), in individuals with a BSA substantial ly different than 1.73 m2, drug dosing should be based on the reported eGFR value de-indexed from BSA by multiplying by the individual' s BSA and dividing by 1.73. CKD is diagnosed based on abnormaliti es of kidney structure or function, present for >3 months, with implication s for health and disease. CKD is classified and staged based on cause, eGFR and albuminuria (quantified as urine albumin to creatinine ratio). An eGFR >60 mL/min/1.73 m2 in the absence of increased urine albumin excretion or structural abnormaliti es does not represent CKD. eGFR CKD Interpretat ion (mL/min/1.7 3 m2) stage >=90 G1 Normal 60-89 G2 Mild decrease 45-59 G3A Mild to moderate decrease 30-44 G3B Moderate to severe decrease 15-29 G4 Severe decrease <15 G5 Kidney failure Ordering Provider: KACEY TIPTON Report Released Date/Time: Apr 18, 2024 10:12 AM Reporting Lab: [facility] [address] [address] Performing Lab: [facility] [address] [address] [facility] LIPID PROFILE CHOLESTEROL IN HDL [MASS/VOLUM E] IN SERUM OR PLASMA 41 mg/dL 40 - 69 04/18 Specimen Type: PLASMA Comment: Estimated Glomerular Filtration Rate (eGFR) calculated using the 2020 Chronic Kidney Disease-Epi demiology (CKD-EPI) Collaborati on creatinine equation; units of measure are mL/min/1.73 m2. Results are only valid for adults (>=18 years) whose serum creatinine is in a steady state. eGFR calculation s are not valid for patients with acute kidney injury and for patients on dialysis. Creatinine- based estimates of kidney function may also be inaccurate in patients with reduced creatinine generation due to decreased muscle mass (e.g., malnutritio n, severe hypoalbumin emia, sarcopenia, chronic neuromuscul ar disease, amputations , severe heart failure or liver disease) and in patients with increased creatinine generation due to increased muscle mass (e.g., muscle builders, anabolic steroids) or increased dietary intake. As drug clearance is proportiona l to total GFR and not GFR indexed to body surface area (BSA), in individuals with a BSA substantial ly different than 1.73 m2, drug dosing should be based on the reported eGFR value de-indexed from BSA by multiplying by the individual' s BSA and dividing by 1.73. CKD is diagnosed based on abnormaliti es of kidney structure or function, present for >3 months, with implication s for health and disease. CKD is classified and staged based on cause, eGFR and albuminuria (quantified as urine albumin to creatinine ratio). An eGFR >60 mL/min/1.73 m2 in the absence of increased urine albumin excretion or structural abnormaliti es does not represent CKD. eGFR CKD Interpretat ion (mL/min/1.7 3 m2) stage >=90 G1 Normal 60-89 G2 Mild decrease 45-59 G3A Mild to moderate decrease 30-44 G3B Moderate to severe decrease 15-29 G4 Severe decrease <15 G5 Kidney failure Ordering Provider: KACEY TIPTON Report Released Date/Time: Apr 18, 2024 10:12 AM Reporting Lab: [facility] [address] [address] Performing Lab: [facility] HO[facility] [address] [address] [facility] LIPID PROFILE CHOLESTEROL IN LDL [MASS/VOLUM E] IN SERUM OR PLASMA BY DIRECT ASSAY 107 mg/dL 0 - 100 04/18 H Specimen Type: PLASMA Comment: Estimated Glomerular Filtration Rate (eGFR) calculated using the 2020 Chronic Kidney Disease-Epi demiology (CKD-EPI) Collaborati on creatinine equation; units of measure are mL/min/1.73 m2. Results are only valid for adults (>=18 years) whose serum creatinine is in a steady state. eGFR calculation s are not valid for patients with acute kidney injury and for patients on dialysis. Creatinine- based estimates of kidney function may also be inaccurate in patients with reduced creatinine generation due to decreased muscle mass (e.g., malnutritio n, severe hypoalbumin emia, sarcopenia, chronic neuromuscul ar disease, amputations , severe heart failure or liver disease) and in patients with increased creatinine generation due to increased muscle mass (e.g., muscle builders, anabolic steroids) or increased dietary intake. As drug clearance is proportiona l to total GFR and not GFR indexed to body surface area (BSA), in individuals with a BSA substantial ly different than 1.73 m2, drug dosing should be based on the reported eGFR value de-indexed from BSA by multiplying by the individual' s BSA and dividing by 1.73. CKD is diagnosed based on abnormaliti es of kidney structure or function, present for >3 months, with implication s for health and disease. CKD is classified and staged based on cause, eGFR and albuminuria (quantified as urine albumin to creatinine ratio). An eGFR >60 mL/min/1.73 m2 in the absence of increased urine albumin excretion or structural abnormaliti es does not represent CKD. eGFR CKD Interpretat ion (mL/min/1.7 3 m2) stage >=90 G1 Normal 60-89 G2 Mild decrease 45-59 G3A Mild to moderate decrease 30-44 G3B Moderate to severe decrease 15-29 G4 Severe decrease <15 G5 Kidney failure Ordering Provider: KACEY TIPTON Report Released Date/Time: Apr 18, 2024 10:12 AM Reporting Lab: [facility] [address] [address] Performing Lab: [facility] HOLL[facility] [address] [address] [facility] PANEL 1 CREATININE [MASS/VOLUM E] IN SERUM OR PLASMA 1.02 mg/dL 0.72 - 1.25 04/18 Specimen Type: PLASMA Comment: Estimated Glomerular Filtration Rate (eGFR) calculated using the 2020 Chronic Kidney Disease-Epi demiology (CKD-EPI) Collaborati on creatinine equation; units of measure are mL/min/1.73 m2. Results are only valid for adults (>=18 years) whose serum creatinine is in a steady state. eGFR calculation s are not valid for patients with acute kidney injury and for patients on dialysis. Creatinine- based estimates of kidney function may also be inaccurate in patients with reduced creatinine generation due to decreased muscle mass (e.g., malnutritio n, severe hypoalbumin emia, sarcopenia, chronic neuromuscul ar disease, amputations , severe heart failure or liver disease) and in patients with increased creatinine generation due to increased muscle mass (e.g., muscle builders, anabolic steroids) or increased dietary intake. As drug clearance is proportiona l to total GFR and not GFR indexed to body surface area (BSA), in individuals with a BSA substantial ly different than 1.73 m2, drug dosing should be based on the reported eGFR value de-indexed from BSA by multiplying by the individual' s BSA and dividing by 1.73. CKD is diagnosed based on abnormaliti es of kidney structure or function, present for >3 months, with implication s for health and disease. CKD is classified and staged based on cause, eGFR and albuminuria (quantified as urine albumin to creatinine ratio). An eGFR >60 mL/min/1.73 m2 in the absence of increased urine albumin excretion or structural abnormaliti es does not represent CKD. eGFR CKD Interpretat ion (mL/min/1.7 3 m2) stage >=90 G1 Normal 60-89 G2 Mild decrease 45-59 G3A Mild to moderate decrease 30-44 G3B Moderate to severe decrease 15-29 G4 Severe decrease <15 G5 Kidney failure Ordering Provider: KACEY TIPTON Report Released Date/Time: Apr 18, 2024 10:12 AM Reporting Lab: [facility] HO[facility] [address] [phone] Performing Lab: [facility] HOLL[facility] [address] [address] [facility] PANEL 1 UREA NITROGEN [MASS/VOLUM E] IN SERUM OR PLASMA 14 mg/dL 04/184 Specimen Type: PLASMA Comment: Estimated Glomerular Filtration Rate (eGFR) calculated using the 2020 Chronic Kidney Disease-Epi demiology (CKD-EPI) Collaborati on creatinine equation; units of measure are mL/min/1.73 m2. Results are only valid for adults (>=18 years) whose serum creatinine is in a steady state. eGFR calculation s are not valid for patients with acute kidney injury and for patients on dialysis. Creatinine- based estimates of kidney function may also be inaccurate in patients with reduced creatinine generation due to decreased muscle mass (e.g., malnutritio n, severe hypoalbumin emia, sarcopenia, chronic neuromuscul ar disease, amputations , severe heart failure or liver disease) and in patients with increased creatinine generation due to increased muscle mass (e.g., muscle builders, anabolic steroids) or increased dietary intake. As drug clearance is proportiona l to total GFR and not GFR indexed to body surface area (BSA), in individuals with a BSA substantial ly different than 1.73 m2, drug dosing should be based on the reported eGFR value de-indexed from BSA by multiplying by the individual' s BSA and dividing by 1.73. CKD is diagnosed based on abnormaliti es of kidney structure or function, present for >3 months, with implication s for health and disease. CKD is classified and staged based on cause, eGFR and albuminuria (quantified as urine albumin to creatinine ratio). An eGFR >60 mL/min/1.73 m2 in the absence of increased urine albumin excretion or structural abnormaliti es does not represent CKD. eGFR CKD Interpretat ion (mL/min/1.7 3 m2) stage >=90 G1 Normal 60-89 G2 Mild decrease 45-59 G3A Mild to moderate decrease 30-44 G3B Moderate to severe decrease 15-29 G4 Severe decrease <15 G5 Kidney failure Ordering Provider: KACEY TIPTON Report Released Date/Time: Apr 18, 2024 10:12 AM Reporting Lab: [facility] HOLL[facility] [address] [address] Performing Lab: [facility] HOLLINS [place] [id number] [facility] PANEL 1 GLUCOSE [MASS/VOLUM E] IN SERUM OR PLASMA 89 mg/dL 74 - 100 04/18 Specimen Type: PLASMA Comment: Estimated Glomerular Filtration Rate (eGFR) calculated using the 2020 Chronic Kidney Disease-Epi demiology (CKD-EPI) Collaborati on creatinine equation; units of measure are mL/min/1.73 m2. Results are only valid for adults (>=18 years) whose serum creatinine is in a steady state. eGFR calculation s are not valid for patients with acute kidney injury and for patients on dialysis. Creatinine- based estimates of kidney function may also be inaccurate in patients with reduced creatinine generation due to decreased muscle mass (e.g., malnutritio n, severe hypoalbumin emia, sarcopenia, chronic neuromuscul ar disease, amputations , severe heart failure or liver disease) and in patients with increased creatinine generation due to increased muscle mass (e.g., muscle builders, anabolic steroids) or increased dietary intake. As drug clearance is proportiona l to total GFR and not GFR indexed to body surface area (BSA), in individuals with a BSA substantial ly different than 1.73 m2, drug dosing should be based on the reported eGFR value de-indexed from BSA by multiplying by the individual' s BSA and dividing by 1.73. CKD is diagnosed based on abnormaliti es of kidney structure or function, present for >3 months, with implication s for health and disease. CKD is classified and staged based on cause, eGFR and albuminuria (quantified as urine albumin to creatinine ratio). An eGFR >60 mL/min/1.73 m2 in the absence of increased urine albumin excretion or structural abnormaliti es does not represent CKD. eGFR CKD Interpretat ion (mL/min/1.7 3 m2) stage >=90 G1 Normal 60-89 G2 Mild decrease 45-59 G3A Mild to moderate decrease 30-44 G3B Moderate to severe decrease 15-29 G4 Severe decrease <15 G5 Kidney failure Ordering Provider: KACEY TIPTON Report Released Date/Time: Apr 18, 2024 10:12 AM Reporting Lab: [facility] [address] [phone] Performing Lab: [facility] HOLLINS [facility] [address] [phone] [facility] PANEL 1 SODIUM [MOLES/VOLU ME] IN SERUM OR PLASMA 136 mmol/L 136 - 145 04/18 Specimen Type: PLASMA Comment: Estimated Glomerular Filtration Rate (eGFR) calculated using the 2020 Chronic Kidney Disease-Epi demiology (CKD-EPI) Collaborati on creatinine equation; units of measure are mL/min/1.73 m2. Results are only valid for adults (>=18 years) whose serum creatinine is in a steady state. eGFR calculation s are not valid for patients with acute kidney injury and for patients on dialysis. Creatinine- based estimates of kidney function may also be inaccurate in patients with reduced creatinine generation due to decreased muscle mass (e.g., malnutritio n, severe hypoalbumin emia, sarcopenia, chronic neuromuscul ar disease, amputations , severe heart failure or liver disease) and in patients with increased creatinine generation due to increased muscle mass (e.g., muscle builders, anabolic steroids) or increased dietary intake. As drug clearance is proportiona l to total GFR and not GFR indexed to body surface area (BSA), in individuals with a BSA substantial ly different than 1.73 m2, drug dosing should be based on the reported eGFR value de-indexed from BSA by multiplying by the individual' s BSA and dividing by 1.73. CKD is diagnosed based on abnormaliti es of kidney structure or function, present for >3 months, with implication s for health and disease. CKD is classified and staged based on cause, eGFR and albuminuria (quantified as urine albumin to creatinine ratio). An eGFR >60 mL/min/1.73 m2 in the absence of increased urine albumin excretion or structural abnormaliti es does not represent CKD. eGFR CKD Interpretat ion (mL/min/1.7 3 m2) stage >=90 G1 Normal 60-89 G2 Mild decrease 45-59 G3A Mild to moderate decrease 30-44 G3B Moderate to severe decrease 15-29 G4 Severe decrease <15 G5 Kidney failure Ordering Provider: KACEY TIPTON Report Released Date/Time: Apr 18, 2024 10:12 AM Reporting Lab: [facility] [address] [phone] Performing Lab: [facility] HOLLINS [facility] [address] [phone] [facility] PANEL 1 POTASSIUM [MOLES/VOLU ME] IN SERUM OR PLASMA 4.7 mmol/L 3.5 - 5.1 04/18 Specimen Type: PLASMA Comment: Estimated Glomerular Filtration Rate (eGFR) calculated using the 2020 Chronic Kidney Disease-Epi demiology (CKD-EPI) Collaborati on creatinine equation; units of measure are mL/min/1.73 m2. Results are only valid for adults (>=18 years) whose serum creatinine is in a steady state. eGFR calculation s are not valid for patients with acute kidney injury and for patients on dialysis. Creatinine- based estimates of kidney function may also be inaccurate in patients with reduced creatinine generation due to decreased muscle mass (e.g., malnutritio n, severe hypoalbumin emia, sarcopenia, chronic neuromuscul ar disease, amputations , severe heart failure or liver disease) and in patients with increased creatinine generation due to increased muscle mass (e.g., muscle builders, anabolic steroids) or increased dietary intake. As drug clearance is proportiona l to total GFR and not GFR indexed to body surface area (BSA), in individuals with a BSA substantial ly different than 1.73 m2, drug dosing should be based on the reported eGFR value de-indexed from BSA by multiplying by the individual' s BSA and dividing by 1.73. CKD is diagnosed based on abnormaliti es of kidney structure or function, present for >3 months, with implication s for health and disease. CKD is classified and staged based on cause, eGFR and albuminuria (quantified as urine albumin to creatinine ratio). An eGFR >60 mL/min/1.73 m2 in the absence of increased urine albumin excretion or structural abnormaliti es does not represent CKD. eGFR CKD Interpretat ion (mL/min/1.7 3 m2) stage >=90 G1 Normal 60-89 G2 Mild decrease 45-59 G3A Mild to moderate decrease 30-44 G3B Moderate to severe decrease 15-29 G4 Severe decrease <15 G5 Kidney failure Ordering Provider: KACEY TIPTON Report Released Date/Time: Apr 18, 2024 10:12 AM Reporting Lab: [facility] [address] [phone] Performing Lab: [facility] [address] [phone] [facility] PANEL 1 CHLORIDE [MOLES/VOLU ME] IN SERUM OR PLASMA 105 mmol/L 98 - 107 04/18 Specimen Type: PLASMA Comment: Estimated Glomerular Filtration Rate (eGFR) calculated using the 2020 Chronic Kidney Disease-Epi demiology (CKD-EPI) Collaborati on creatinine equation; units of measure are mL/min/1.73 m2. Results are only valid for adults (>=18 years) whose serum creatinine is in a steady state. eGFR calculation s are not valid for patients with acute kidney injury and for patients on dialysis. Creatinine- based estimates of kidney function may also be inaccurate in patients with reduced creatinine generation due to decreased muscle mass (e.g., malnutritio n, severe hypoalbumin emia, sarcopenia, chronic neuromuscul ar disease, amputations , severe heart failure or liver disease) and in patients with increased creatinine generation due to increased muscle mass (e.g., muscle builders, anabolic steroids) or increased dietary intake. As drug clearance is proportiona l to total GFR and not GFR indexed to body surface area (BSA), in individuals with a BSA substantial ly different than 1.73 m2, drug dosing should be based on the reported eGFR value de-indexed from BSA by multiplying by the individual' s BSA and dividing by 1.73. CKD is diagnosed based on abnormaliti es of kidney structure or function, present for >3 months, with implication s for health and disease. CKD is classified and staged based on cause, eGFR and albuminuria (quantified as urine albumin to creatinine ratio). An eGFR >60 mL/min/1.73 m2 in the absence of increased urine albumin excretion or structural abnormaliti es does not represent CKD. eGFR CKD Interpretat ion (mL/min/1.7 3 m2) stage >=90 G1 Normal 60-89 G2 Mild decrease 45-59 G3A Mild to moderate decrease 30-44 G3B Moderate to severe decrease 15-29 G4 Severe decrease <15 G5 Kidney failure Ordering Provider: KACEY TIPTON Report Released Date/Time: Apr 18, 2024 10:12 AM Reporting Lab: [facility] [address] [place] [phone] Performing Lab: [address] [phone] [facility] PANEL 1 CARBON DIOXIDE, TOTAL [MOLES/VOLU ME] IN SERUM OR PLASMA 25 mmol/L 22 - 04/18 Specimen Type: PLASMA Comment: Estimated Glomerular Filtration Rate (eGFR) calculated using the 2020 Chronic Kidney Disease-Epi demiology (CKD-EPI) Collaborati on creatinine equation; units of measure are mL/min/1.73 m2. Results are only valid for adults (>=18 years) whose serum creatinine is in a steady state. eGFR calculation s are not valid for patients with acute kidney injury and for patients on dialysis. Creatinine- based estimates of kidney function may also be inaccurate in patients with reduced creatinine generation due to decreased muscle mass (e.g., malnutritio n, severe hypoalbumin emia, sarcopenia, chronic neuromuscul ar disease, amputations , severe heart failure or liver disease) and in patients with increased creatinine generation due to increased muscle mass (e.g., muscle builders, anabolic steroids) or increased dietary intake. As drug clearance is proportiona l to total GFR and not GFR indexed to body surface area (BSA), in individuals with a BSA substantial ly different than 1.73 m2, drug dosing should be based on the reported eGFR value de-indexed from BSA by multiplying by the individual' s BSA and dividing by 1.73. CKD is diagnosed based on abnormaliti es of kidney structure or function, present for >3 months, with implication s for health and disease. CKD is classified and staged based on cause, eGFR and albuminuria (quantified as urine albumin to creatinine ratio). An eGFR >60 mL/min/1.73 m2 in the absence of increased urine albumin excretion or structural abnormaliti es does not represent CKD. eGFR CKD Interpretat ion (mL/min/1.7 3 m2) stage >=90 G1 Normal 60-89 G2 Mild decrease 45-59 G3A Mild to moderate decrease 30-44 G3B Moderate to severe decrease 15-29 G4 Severe decrease <15 G5 Kidney failure Ordering Provider: KACEY TIPTON Report Released Date/Time: Apr 18, 2024 10:12 AM Reporting Lab: [facility] HOLL[facility] [address] [address] Performing Lab: [facility] HOLLINS [address] [address] [facility] PANEL 1 CALCIUM [MASS/VOLUM E] IN SERUM OR PLASMA 10.4 mg/dL 8.4 - 10.2 04/18 H Specimen Type: PLASMA Comment: Estimated Glomerular Filtration Rate (eGFR) calculated using the 2020 Chronic Kidney Disease-Epi demiology (CKD-EPI) Collaborati on creatinine equation; units of measure are mL/min/1.73 m2. Results are only valid for adults (>=18 years) whose serum creatinine is in a steady state. eGFR calculation s are not valid for patients with acute kidney injury and for patients on dialysis. Creatinine- based estimates of kidney function may also be inaccurate in patients with reduced creatinine generation due to decreased muscle mass (e.g., malnutritio n, severe hypoalbumin emia, sarcopenia, chronic neuromuscul ar disease, amputations , severe heart failure or liver disease) and in patients with increased creatinine generation due to increased muscle mass (e.g., muscle builders, anabolic steroids) or increased dietary intake. As drug clearance is proportiona l to total GFR and not GFR indexed to body surface area (BSA), in individuals with a BSA substantial ly different than 1.73 m2, drug dosing should be based on the reported eGFR value de-indexed from BSA by multiplying by the individual' s BSA and dividing by 1.73. CKD is diagnosed based on abnormaliti es of kidney structure or function, present for >3 months, with implication s for health and disease. CKD is classified and staged based on cause, eGFR and albuminuria (quantified as urine albumin to creatinine ratio). An eGFR >60 mL/min/1.73 m2 in the absence of increased urine albumin excretion or structural abnormaliti es does not represent CKD. eGFR CKD Interpretat ion (mL/min/1.7 3 m2) stage >=90 G1 Normal 60-89 G2 Mild decrease 45-59 G3A Mild to moderate decrease 30-44 G3B Moderate to severe decrease 15-29 G4 Severe decrease <15 G5 Kidney failure Ordering Provider: KACEY TIPTON Report Released Date/Time: Apr 18, 2024 10:12 AM Reporting Lab: [facility] [address] [address] Performing Lab: [facility] [address] [address] [facility] PANEL 1 ANION GAP 3 IN SERUM OR PLASMA 6 meq/L 3 - 19 04/18 Specimen Type: PLASMA Comment: Estimated Glomerular Filtration Rate (eGFR) calculated using the 2020 Chronic Kidney Disease-Epi demiology (CKD-EPI) Collaborati on creatinine equation; units of measure are mL/min/1.73 m2. Results are only valid for adults (>=18 years) whose serum creatinine is in a steady state. eGFR calculation s are not valid for patients with acute kidney injury and for patients on dialysis. Creatinine- based estimates of kidney function may also be inaccurate in patients with reduced creatinine generation due to decreased muscle mass (e.g., malnutritio n, severe hypoalbumin emia, sarcopenia, chronic neuromuscul ar disease, amputations , severe heart failure or liver disease) and in patients with increased creatinine generation due to increased muscle mass (e.g., muscle builders, anabolic steroids) or increased dietary intake. As drug clearance is proportiona l to total GFR and not GFR indexed to body surface area (BSA), in individuals with a BSA substantial ly different than 1.73 m2, drug dosing should be based on the reported eGFR value de-indexed from BSA by multiplying by the individual' s BSA and dividing by 1.73. CKD is diagnosed based on abnormaliti es of kidney structure or function, present for >3 months, with implication s for health and disease. CKD is classified and staged based on cause, eGFR and albuminuria (quantified as urine albumin to creatinine ratio). An eGFR >60 mL/min/1.73 m2 in the absence of increased urine albumin excretion or structural abnormaliti es does not represent CKD. eGFR CKD Interpretat ion (mL/min/1.7 3 m2) stage >=90 G1 Normal 60-89 G2 Mild decrease 45-59 G3A Mild to moderate decrease 30-44 G3B Moderate to severe decrease 15-29 G4 Severe decrease <15 G5 Kidney failure Ordering Provider: KACEY TIPTON Report Released Date/Time: Apr 18, 2024 10:12 AM Reporting Lab: [facility] [address] [address] Performing Lab: [facility] [address] [address] [facility] PANEL 1 GLOMERULAR FILTRATION RATE/1.73 SQ M.PREDICTED [VOLUME RATE/AREA] IN SERUM, PLASMA OR BLOOD BY CREATININE- BASED FORMULA (CKD-EPI 2020) >90 04/18 Specimen Type: PLASMA Comment: Estimated Glomerular Filtration Rate (eGFR) calculated using the 2020 Chronic Kidney Disease-Epi demiology (CKD-EPI) Collaborati on creatinine equation; units of measure are mL/min/1.73 m2. Results are only valid for adults (>=18 years) whose serum creatinine is in a steady state. eGFR calculation s are not valid for patients with acute kidney injury and for patients on dialysis. Creatinine- based estimates of kidney function may also be inaccurate in patients with reduced creatinine generation due to decreased muscle mass (e.g., malnutritio n, severe hypoalbumin emia, sarcopenia, chronic neuromuscul ar disease, amputations , severe heart failure or liver disease) and in patients with increased creatinine generation due to increased muscle mass (e.g., muscle builders, anabolic steroids) or increased dietary intake. As drug clearance is proportiona l to total GFR and not GFR indexed to body surface area (BSA), in individuals with a BSA substantial ly different than 1.73 m2, drug dosing should be based on the reported eGFR value de-indexed from BSA by multiplying by the individual' s BSA and dividing by 1.73. CKD is diagnosed based on abnormaliti es of kidney structure or function, present for >3 months, with implication s for health and disease. CKD is classified and staged based on cause, eGFR and albuminuria (quantified as urine albumin to creatinine ratio). An eGFR >60 mL/min/1.73 m2 in the absence of increased urine albumin excretion or structural abnormaliti es does not represent CKD. eGFR CKD Interpretat ion (mL/min/1.7 3 m2) stage >=90 G1 Normal 60-89 G2 Mild decrease 45-59 G3A Mild to moderate decrease 30-44 G3B Moderate to severe decrease 15-29 G4 Severe decrease <15 G5 Kidney failure Ordering Provider: KACEY TIPTON Report Released Date/Time: Apr 18, 2024 10:12 AM Reporting Lab: [facility] [address] [address] Performing Lab: [facility] HOLL[facility] [address] [address] [facility] PANEL 2 PROTEIN [MASS/VOLUM E] IN SERUM OR PLASMA 7.8 g/dL 6.4 - 8.3 04/18 Specimen Type: PLASMA Comment: Estimated Glomerular Filtration Rate (eGFR) calculated using the 2020 Chronic Kidney Disease-Epi demiology (CKD-EPI) Collaborati on creatinine equation; units of measure are mL/min/1.73 m2. Results are only valid for adults (>=18 years) whose serum creatinine is in a steady state. eGFR calculation s are not valid for patients with acute kidney injury and for patients on dialysis. Creatinine- based estimates of kidney function may also be inaccurate in patients with reduced creatinine generation due to decreased muscle mass (e.g., malnutritio n, severe hypoalbumin emia, sarcopenia, chronic neuromuscul ar disease, amputations , severe heart failure or liver disease) and in patients with increased creatinine generation due to increased muscle mass (e.g., muscle builders, anabolic steroids) or increased dietary intake. As drug clearance is proportiona l to total GFR and not GFR indexed to body surface area (BSA), in individuals with a BSA substantial ly different than 1.73 m2, drug dosing should be based on the reported eGFR value de-indexed from BSA by multiplying by the individual' s BSA and dividing by 1.73. CKD is diagnosed based on abnormaliti es of kidney structure or function, present for >3 months, with implication s for health and disease. CKD is classified and staged based on cause, eGFR and albuminuria (quantified as urine albumin to creatinine ratio). An eGFR >60 mL/min/1.73 m2 in the absence of increased urine albumin excretion or structural abnormaliti es does not represent CKD. eGFR CKD Interpretat ion (mL/min/1.7 3 m2) stage >=90 G1 Normal 60-89 G2 Mild decrease 45-59 G3A Mild to moderate decrease 30-44 G3B Moderate to severe decrease 15-29 G4 Severe decrease <15 G5 Kidney failure Ordering Provider: KACEY TIPTON Report Released Date/Time: Apr 18, 2024 10:12 AM Reporting Lab: [facility] [address] [address] Performing Lab: [facility] HOLLINS [address] [address] [facility] PANEL 2 ALBUMIN [MASS/VOLUM E] IN SERUM OR PLASMA 4.4 g/dL 3.5 - 5.2 04/18 Specimen Type: PLASMA Comment: Estimated Glomerular Filtration Rate (eGFR) calculated using the 2020 Chronic Kidney Disease-Epi demiology (CKD-EPI) Collaborati on creatinine equation; units of measure are mL/min/1.73 m2. Results are only valid for adults (>=18 years) whose serum creatinine is in a steady state. eGFR calculation s are not valid for patients with acute kidney injury and for patients on dialysis. Creatinine- based estimates of kidney function may also be inaccurate in patients with reduced creatinine generation due to decreased muscle mass (e.g., malnutritio n, severe hypoalbumin emia, sarcopenia, chronic neuromuscul ar disease, amputations , severe heart failure or liver disease) and in patients with increased creatinine generation due to increased muscle mass (e.g., muscle builders, anabolic steroids) or increased dietary intake. As drug clearance is proportiona l to total GFR and not GFR indexed to body surface area (BSA), in individuals with a BSA substantial ly different than 1.73 m2, drug dosing should be based on the reported eGFR value de-indexed from BSA by multiplying by the individual' s BSA and dividing by 1.73. CKD is diagnosed based on abnormaliti es of kidney structure or function, present for >3 months, with implication s for health and disease. CKD is classified and staged based on cause, eGFR and albuminuria (quantified as urine albumin to creatinine ratio). An eGFR >60 mL/min/1.73 m2 in the absence of increased urine albumin excretion or structural abnormaliti es does not represent CKD. eGFR CKD Interpretat ion (mL/min/1.7 3 m2) stage >=90 G1 Normal 60-89 G2 Mild decrease 45-59 G3A Mild to moderate decrease 30-44 G3B Moderate to severe decrease 15-29 G4 Severe decrease <15 G5 Kidney failure Ordering Provider: KACEY TIPTON Report Released Date/Time: Apr 18, 2024 10:12 AM Reporting Lab: [facility] [address] [address] Performing Lab: [facility] HOLL[facility] [address] [address] [facility] PANEL 2 BILIRUBIN.T OTAL [MASS/VOLUM E] IN SERUM OR PLASMA 0.6 mg/dL 0.2 - 1.2 04/18 Specimen Type: PLASMA Comment: Estimated Glomerular Filtration Rate (eGFR) calculated using the 2020 Chronic Kidney Disease-Epi demiology (CKD-EPI) Collaborati on creatinine equation; units of measure are mL/min/1.73 m2. Results are only valid for adults (>=18 years) whose serum creatinine is in a steady state. eGFR calculation s are not valid for patients with acute kidney injury and for patients on dialysis. Creatinine- based estimates of kidney function may also be inaccurate in patients with reduced creatinine generation due to decreased muscle mass (e.g., malnutritio n, severe hypoalbumin emia, sarcopenia, chronic neuromuscul ar disease, amputations , severe heart failure or liver disease) and in patients with increased creatinine generation due to increased muscle mass (e.g., muscle builders, anabolic steroids) or increased dietary intake. As drug clearance is proportiona l to total GFR and not GFR indexed to body surface area (BSA), in individuals with a BSA substantial ly different than 1.73 m2, drug dosing should be based on the reported eGFR value de-indexed from BSA by multiplying by the individual' s BSA and dividing by 1.73. CKD is diagnosed based on abnormaliti es of kidney structure or function, present for >3 months, with implication s for health and disease. CKD is classified and staged based on cause, eGFR and albuminuria (quantified as urine albumin to creatinine ratio). An eGFR >60 mL/min/1.73 m2 in the absence of increased urine albumin excretion or structural abnormaliti es does not represent CKD. eGFR CKD Interpretat ion (mL/min/1.7 3 m2) stage >=90 G1 Normal 60-89 G2 Mild decrease 45-59 G3A Mild to moderate decrease 30-44 G3B Moderate to severe decrease 15-29 G4 Severe decrease <15 G5 Kidney failure Ordering Provider: KACEY TIPTON Report Released Date/Time: Apr 18, 2024 10:12 AM Reporting Lab: [facility] [address] [address] Performing Lab: [facility] HOLL[facility] [address] [address] [facility] PANEL 2 ASPARTATE AMINOTRANSF ERASE [ENZYMATIC ACTIVITY/VO LUME] IN SERUM OR PLASMA 21 U/L 5 - 34 04/18 Specimen Type: PLASMA Comment: Estimated Glomerular Filtration Rate (eGFR) calculated using the 2020 Chronic Kidney Disease-Epi demiology (CKD-EPI) Collaborati on creatinine equation; units of measure are mL/min/1.73 m2. Results are only valid for adults (>=18 years) whose serum creatinine is in a steady state. eGFR calculation s are not valid for patients with acute kidney injury and for patients on dialysis. Creatinine- based estimates of kidney function may also be inaccurate in patients with reduced creatinine generation due to decreased muscle mass (e.g., malnutritio n, severe hypoalbumin emia, sarcopenia, chronic neuromuscul ar disease, amputations , severe heart failure or liver disease) and in patients with increased creatinine generation due to increased muscle mass (e.g., muscle builders, anabolic steroids) or increased dietary intake. As drug clearance is proportiona l to total GFR and not GFR indexed to body surface area (BSA), in individuals with a BSA substantial ly different than 1.73 m2, drug dosing should be based on the reported eGFR value de-indexed from BSA by multiplying by the individual' s BSA and dividing by 1.73. CKD is diagnosed based on abnormaliti es of kidney structure or function, present for >3 months, with implication s for health and disease. CKD is classified and staged based on cause, eGFR and albuminuria (quantified as urine albumin to creatinine ratio). An eGFR >60 mL/min/1.73 m2 in the absence of increased urine albumin excretion or structural abnormaliti es does not represent CKD. eGFR CKD Interpretat ion (mL/min/1.7 3 m2) stage >=90 G1 Normal 60-89 G2 Mild decrease 45-59 G3A Mild to moderate decrease 30-44 G3B Moderate to severe decrease 15-29 G4 Severe decrease <15 G5 Kidney failure Ordering Provider: KACEY TIPTON Report Released Date/Time: Apr 18, 2024 10:12 AM Reporting Lab: [facility] [address] [facility] [address] Performing Lab: [facility] HOLLINS [facility] [address] [facility] [address] [facility] PANEL 2 ALANINE AMINOTRANSF ERASE [ENZYMATIC ACTIVITY/VO LUME] IN SERUM OR PLASMA 30 U/L 0 - 55 04/18 Specimen Type: PLASMA Comment: Estimated Glomerular Filtration Rate (eGFR) calculated using the 2020 Chronic Kidney Disease-Epi demiology (CKD-EPI) Collaborati on creatinine equation; units of measure are mL/min/1.73 m2. Results are only valid for adults (>=18 years) whose serum creatinine is in a steady state. eGFR calculation s are not valid for patients with acute kidney injury and for patients on dialysis. Creatinine- based estimates of kidney function may also be inaccurate in patients with reduced creatinine generation due to decreased muscle mass (e.g., malnutritio n, severe hypoalbumin emia, sarcopenia, chronic neuromuscul ar disease, amputations , severe heart failure or liver disease) and in patients with increased creatinine generation due to increased muscle mass (e.g., muscle builders, anabolic steroids) or increased dietary intake. As drug clearance is proportiona l to total GFR and not GFR indexed to body surface area (BSA), in individuals with a BSA substantial ly different than 1.73 m2, drug dosing should be based on the reported eGFR value de-indexed from BSA by multiplying by the individual' s BSA and dividing by 1.73. CKD is diagnosed based on abnormaliti es of kidney structure or function, present for >3 months, with implication s for health and disease. CKD is classified and staged based on cause, eGFR and albuminuria (quantified as urine albumin to creatinine ratio). An eGFR >60 mL/min/1.73 m2 in the absence of increased urine albumin excretion or structural abnormaliti es does not represent CKD. eGFR CKD Interpretat ion (mL/min/1.7 3 m2) stage >=90 G1 Normal 60-89 G2 Mild decrease 45-59 G3A Mild to moderate decrease 30-44 G3B Moderate to severe decrease 15-29 G4 Severe decrease <15 G5 Kidney failure Ordering Provider: KACEY TIPTON Report Released Date/Time: Apr 18, 2024 10:12 AM Reporting Lab: [facility] [address] [facility] [address] Performing Lab: [facility] HOLLINS [facility] [address] [facility] [address] [facility] PANEL 2 ALKALINE PHOSPHATASE [ENZYMATIC ACTIVITY/VO LUME] IN SERUM OR PLASMA 81 U/L 40 - 150 04/18 Specimen Type: PLASMA Comment: Estimated Glomerular Filtration Rate (eGFR) calculated using the 2020 Chronic Kidney Disease-Epi demiology (CKD-EPI) Collaborati on creatinine equation; units of measure are mL/min/1.73 m2. Results are only valid for adults (>=18 years) whose serum creatinine is in a steady state. eGFR calculation s are not valid for patients with acute kidney injury and for patients on dialysis. Creatinine- based estimates of kidney function may also be inaccurate in patients with reduced creatinine generation due to decreased muscle mass (e.g., malnutritio n, severe hypoalbumin emia, sarcopenia, chronic neuromuscul ar disease, amputations , severe heart failure or liver disease) and in patients with increased creatinine generation due to increased muscle mass (e.g., muscle builders, anabolic steroids) or increased dietary intake. As drug clearance is proportiona l to total GFR and not GFR indexed to body surface area (BSA), in individuals with a BSA substantial ly different than 1.73 m2, drug dosing should be based on the reported eGFR value de-indexed from BSA by multiplying by the individual' s BSA and dividing by 1.73. CKD is diagnosed based on abnormaliti es of kidney structure or function, present for >3 months, with implication s for health and disease. CKD is classified and staged based on cause, eGFR and albuminuria (quantified as urine albumin to creatinine ratio). An eGFR >60 mL/min/1.73 m2 in the absence of increased urine albumin excretion or structural abnormaliti es does not represent CKD. eGFR CKD Interpretat ion (mL/min/1.7 3 m2) stage >=90 G1 Normal 60-89 G2 Mild decrease 45-59 G3A Mild to moderate decrease 30-44 G3B Moderate to severe decrease 15-29 G4 Severe decrease <15 G5 Kidney failure Ordering Provider: KACEY TIPTON Report Released Date/Time: Apr 18, 2024 10:12 AM Reporting Lab: [facility] HOLL[facility] [address] [address] Performing Lab: [facility] [address] [address] [facility] PANEL 2 BILIRUBIN.D IRECT [MASS/VOLUM E] IN SERUM OR PLASMA 0.2 mg/dL 0.0 - 0.5 04/18 Specimen Type: PLASMA Comment: Estimated Glomerular Filtration Rate (eGFR) calculated using the 2020 Chronic Kidney Disease-Epi demiology (CKD-EPI) Collaborati on creatinine equation; units of measure are mL/min/1.73 m2. Results are only valid for adults (>=18 years) whose serum creatinine is in a steady state. eGFR calculation s are not valid for patients with acute kidney injury and for patients on dialysis. Creatinine- based estimates of kidney function may also be inaccurate in patients with reduced creatinine generation due to decreased muscle mass (e.g., malnutritio n, severe hypoalbumin emia, sarcopenia, chronic neuromuscul ar disease, amputations , severe heart failure or liver disease) and in patients with increased creatinine generation due to increased muscle mass (e.g., muscle builders, anabolic steroids) or increased dietary intake. As drug clearance is proportiona l to total GFR and not GFR indexed to body surface area (BSA), in individuals with a BSA substantial ly different than 1.73 m2, drug dosing should be based on the reported eGFR value de-indexed from BSA by multiplying by the individual' s BSA and dividing by 1.73. CKD is diagnosed based on abnormaliti es of kidney structure or function, present for >3 months, with implication s for health and disease. CKD is classified and staged based on cause, eGFR and albuminuria (quantified as urine albumin to creatinine ratio). An eGFR >60 mL/min/1.73 m2 in the absence of increased urine albumin excretion or structural abnormaliti es does not represent CKD. eGFR CKD Interpretat ion (mL/min/1.7 3 m2) stage >=90 G1 Normal 60-89 G2 Mild decrease 45-59 G3A Mild to moderate decrease 30-44 G3B Moderate to severe decrease 15-29 G4 Severe decrease <15 G5 Kidney failure Ordering Provider: KACEY TIPTON Report Released Date/Time: Apr 18, 2024 10:12 AM Reporting Lab: [place] [phone] Performing Lab: [place] [phone] [facility] AUTOMATED DIFF LYMPHOCYTES /100 LEUKOCYTES IN BLOOD BY AUTOMATED COUNT 34.0 24.0 - 44.0 04/29 Specimen Type: BLOOD Comment: ~STAT Ordering Provider: JARROD SANTIAGO Report Released Date/Time: Apr 29, 2023 04:40 PM Reporting Lab: [place] [phone] Performing Lab: [place] [phone] [facility] AUTOMATED DIFF MONOCYTES/1 00 LEUKOCYTES IN BLOOD BY AUTOMATED COUNT 8.3 0.1 - 6.0 04/29 H Specimen Type: BLOOD Comment: ~STAT Ordering Provider: JARROD SANTIAGO Report Released Date/Time: Apr 29, 2023 04:40 PM Reporting Lab: [place] [phone] Performing Lab: [address] [address] [facility] AUTOMATED DIFF GRANULOCYTE S/100 LEUKOCYTES IN BLOOD BY AUTOMATED COUNT 53.6 42.0 - 75.0 04/29 Specimen Type: BLOOD Comment: ~STAT Ordering Provider: JARROD SANTIAGO Report Released Date/Time: Apr 29, 2023 04:40 PM Reporting Lab: [address] [address] Performing Lab: [address] [address] [facility] AUTOMATED DIFF LYMPHOCYTES [#/VOLUME] IN BLOOD BY AUTOMATED COUNT 2.75 10*3/u L 1.20 - 3.40 04/29 Specimen Type: BLOOD Comment: ~STAT Ordering Provider: JARROD SANTIAGO Report Released Date/Time: Apr 29, 2023 04:40 PM Reporting Lab: [address] [address] Performing Lab: [place] [phone] [place] [address] AUTOMATED DIFF MONOCYTES [#/VOLUME] IN BLOOD BY AUTOMATED COUNT 0.67 10*3/u L 0.00 - 0.60 04/29 H Specimen Type: BLOOD Comment: ~STAT Ordering Provider: JARROD SANTIAGO Report Released Date/Time: Apr 29, 2023 04:40 PM Reporting Lab: [place] [phone] Performing Lab: [place] [phone] [place] [address] AUTOMATED DIFF GRANULOCYTE S [#/VOLUME] IN BLOOD BY AUTOMATED COUNT 4.34 10*3/u L 1.40 - 6.50 04/29 Specimen Type: BLOOD Comment: ~STAT Ordering Provider: JARROD SANTIAGO Report Released Date/Time: Apr 29, 2023 04:40 PM Reporting Lab: [place] [phone] Performing Lab: [place] [phone] [place] [address] AUTOMATED DIFF BASOPHILS/1 00 LEUKOCYTES IN BLOOD BY AUTOMATED COUNT 0.5 0.0 - 3.0 04/29 Specimen Type: BLOOD Comment: ~STAT Ordering Provider: JARROD SANTIAGO Report Released Date/Time: Apr 29, 2023 04:40 PM Reporting Lab: [place] [phone] Performing Lab: [place] [phone] [place] [address] AUTOMATED DIFF BASOPHILS [#/VOLUME] IN BLOOD BY AUTOMATED COUNT 0.04 10*3/u L 0.00 - 0.20 04/29 Specimen Type: BLOOD Comment: ~STAT Ordering Provider: JARROD SANTIAGO Report Released Date/Time: Apr 29, 2023 04:40 PM Reporting Lab: [facility] [address] [address] Performing Lab: [facility] [phone] [place] [address] AUTOMATED DIFF EOSINOPHILS /100 LEUKOCYTES IN BLOOD BY AUTOMATED COUNT 3.2 0.0 - 10.0 04/29 Specimen Type: BLOOD Comment: ~STAT Ordering Provider: JARROD SANTIAGO Report Released Date/Time: Apr 29, 2023 04:40 PM Reporting Lab: [facility] [address] [address] Performing Lab: [place] [phone] [facility] AUTOMATED DIFF EOSINOPHILS [#/VOLUME] IN BLOOD BY AUTOMATED COUNT 0.26 10*3/u L 0.00 - 0.70 04/29 Specimen Type: BLOOD Comment: ~STAT Ordering Provider: JARROD SANTIAGO Report Released Date/Time: Apr 29, 2023 04:40 PM Reporting Lab: [address] [address] Performing Lab: [address] [phone] [place] [address] AUTOMATED DIFF IMMATURE GRANULOCYTE S/100 LEUKOCYTES IN BLOOD 0.4 0.0 - 0.5 04/29 Specimen Type: BLOOD Comment: ~STAT Ordering Provider: JARROD SANTIAGO Report Released Date/Time: Apr 29, 2023 04:40 PM Reporting Lab: [facility] [address] [address] Performing Lab: [address] [address] [facility] AUTOMATED DIFF IMMATURE GRANULOCYTE S [#/VOLUME] IN BLOOD 0.03 10*3/u L 0.00 - 0.06 04/29 Specimen Type: BLOOD Comment: ~STAT Ordering Provider: JARROD SANTIAGO Report Released Date/Time: Apr 29, 2023 04:40 PM Reporting Lab: [facility] [address] [address] Performing Lab: [facility] [address] [facility] [address] [facility] CBC/PLT LEUKOCYTES [#/VOLUME] IN BLOOD BY AUTOMATED COUNT 8.1 10*3/u L 5.0 - 10.0 04/29 Specimen Type: BLOOD Comment: ~STAT Ordering Provider: JARROD SANTIAGO Report Released Date/Time: Apr 29, 2023 04:40 PM Reporting Lab: [address] [address] Performing Lab: [address] [address] [facility] CBC/PLT ERYTHROCYTE S [#/VOLUME] IN BLOOD BY AUTOMATED COUNT 4.64 10*6/u L 4.6 - 6.2 04/29 Specimen Type: BLOOD Comment: ~STAT Ordering Provider: JARROD SANTIAGO Report Released Date/Time: Apr 29, 2023 04:40 PM Reporting Lab: [address] [address] Performing Lab: [address] [phone] [facility] CBC/PLT HEMOGLOBIN [MASS/VOLUM E] IN BLOOD 13.7 g/dL 14.0 - 18.0 04/29 L Specimen Type: BLOOD Comment: ~STAT Ordering Provider: JARROD SANTIAGO Report Released Date/Time: Apr 29, 2023 04:40 PM Reporting Lab: [address] [address] Performing Lab: [address] [address] [facility] CBC/PLT HEMATOCRIT [VOLUME FRACTION] OF BLOOD BY AUTOMATED COUNT 39.0 42.0 - 52.0 04/29 L Specimen Type: BLOOD Comment: ~STAT Ordering Provider: JARROD SANTIAGO Report Released Date/Time: Apr 29, 2023 04:40 PM Reporting Lab: [address] [address] Performing Lab: [address] [phone] [facility] CBC/PLT MCV [ENTITIC VOLUME] BY AUTOMATED COUNT 84.1 fL 80.0 - 94.0 04/29 Specimen Type: BLOOD Comment: ~STAT Ordering Provider: JARROD SANTIAGO Report Released Date/Time: Apr 29, 2023 04:40 PM Reporting Lab: [place] [phone] Performing Lab: [place] [phone] CBC/PLT MCH [ENTITIC MASS] BY AUTOMATED COUNT 29.5 pg 27.0 - 31.0 04/29 Specimen Type: BLOOD Comment: ~STAT Ordering Provider: JARROD SANTIAGO Report Released Date/Time: Apr 29, 2023 04:40 PM Reporting Lab: [place] [address] Performing Lab: [place] [phone] CBC/PLT MCHC [MASS/VOLUM E] BY AUTOMATED COUNT 35.1 g/dL 32.0 - 36.0 04/29 Specimen Type: BLOOD Comment: ~STAT Ordering Provider: JARROD SANTIAGO Report Released Date/Time: Apr 29, 2023 04:40 PM Reporting Lab: [place] [address] Performing Lab: [address] CBC/PLT PLATELETS [#/VOLUME] IN BLOOD 225 10*3/u L 150 - 450 04/29 Specimen Type: BLOOD Comment: ~STAT Ordering Provider: JARROD SANTIAGO Report Released Date/Time: Apr 29, 2023 04:40 PM Reporting Lab: [place] [phone] Performing Lab: [address] CBC/PLT PLATELET MEAN VOLUME [ENTITIC VOLUME] IN BLOOD 8.9 fL 9.0 - 13.1 04/29 L Specimen Type: BLOOD Comment: ~STAT Ordering Provider: JARROD SANTIAGO Report Released Date/Time: Apr 29, 2023 04:40 PM Reporting Lab: [address] [address] Performing Lab: [place] [phone] [facility] CBC/PLT ERYTHROCYTE DISTRIBUTIO N WIDTH [ENTITIC VOLUME] BY AUTOMATED COUNT 13.2 11.0 - 16.0 04/29 Specimen Type: BLOOD Comment: ~STAT Ordering Provider: JARROD SANTIAGO Report Released Date/Time: Apr 29, 2023 04:40 PM Reporting Lab: [address] [address] Performing Lab: [place] [phone] [facility] CBC/PLT NUCLEATED ERYTHROCYTE S/100 ERYTHROCYTE S IN BLOOD 0.0 0.0 - 0.0 04/29 Specimen Type: BLOOD Comment: ~STAT Ordering Provider: JARROD SANTIAGO Report Released Date/Time: Apr 29, 2023 04:40 PM Reporting Lab: [address] Performing Lab: [place] [phone] [facility] CRP (for acute inflammat ion) C REACTIVE PROTEIN [MASS/VOLUM E] IN SERUM OR PLASMA 5.5 mg/L 0.0 - 5.0 04/29 H Specimen Type: PLASMA Comment: Estimated Glomerular Filtration Rate (eGFR) calculated using the 2020 Chronic Kidney Disease-Epi demiology (CKD-EPI) Collaborati on creatinine equation; units of measure are mL/min/1.73 m2. Results are only valid for adults (>=18 years) whose serum creatinine is in a steady state. eGFR calculation s are not valid for patients with acute kidney injury and for patients on dialysis. Creatinine- based estimates of kidney function may also be inaccurate in patients with reduced creatinine generation due to decreased muscle mass (e.g., malnutritio n, severe hypoalbumin emia, sarcopenia, chronic neuromuscul ar disease, amputations , severe heart failure or liver disease) and in patients with increased creatinine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
--- NOTE | 2025-03-11 08:48 | XR_ITS ---
FINAL REPORT CLINICAL HISTORY: Right shoulder pain FINDINGS: RIGHT SHOULDER Three views were obtained. There is no fracture or dislocation. The joint spaces appear normal. No soft tissue abnormality is identified. IMPRESSION: No acute process. Reviewed, Interpreted and Dictated by Lewis Pena MD Transcribed by Virgen Trotter Authenticated and [facility]
== END 2025-03-11 23:59 | disposition home or self-care (01) ==
LOC: RAD 08:44
PROVIDERS: PCP Internal Medicine; Visit Provider Internal Medicine
DX: M25.511 Pain in right shoulder (principal)
CPT/HCPCS: 73030